=== PATIENT | male | born 1995 | race Caucasian/White ===

== ENCOUNTER → 2020-02-04 13:36 | Outpatient (CLI) | payer OTHER, SELFPAY ==
[2020-02-04 14:46] LABS: Cholesterol 136 mg/dL (140-199); HDL Cholesterol 35 mg/dL (40-60); LDL Cholesterol Calculated 71 mg/dL (<100); Triglycerides 152 mg/dL (35-150)
[2020-02-04 15:14] LABS: TSH w/ Reflex to FT4 1.42 uIU/mL (0.47-4.68)
[2020-02-04 15:34] LABS: Vitamin B12 610 pg/mL (239-931)
== END ==
PROVIDERS: PCP Student in an Organized Health Care Education/Training Program; Referring Provider Student in an Organized Health Care Education/Training Program; Visit Provider Student in an Organized Health Care Education/Training Program
DX: Z13.220 Encounter for screening for lipoid disorders (principal); F32.9 Major depressive disorder, single episode, unspecified
CPT/HCPCS: 36415; 80061; 82607; 84443